=== PATIENT | female | born 1950 | race Caucasian/White ===

== ENCOUNTER 2022-05-04 13:23 | Emergency (ER) | payer BC ==
[2022-05-04] MEDS ORDERED: Sodium Chloride 0.9% 10 ML Syringe FLUSH PRN (14:25)
[2022-05-04] MEDS ORDERED: Magnesium Sulfate/Water 2 GM in Premix Bag 1 BAG IV ONE (14:29)
[2022-05-04] MEDS ORDERED: Lidocaine 1% PF 2 ML SDV IV SCH (14:30)
[2022-05-04] MEDS ORDERED: Potassium Chloride 20 MEQ Tab.ER PO ONE (14:33)
[2022-05-04] MEDS ORDERED: Aspirin 81 MG Tab.Chew PO ONE (14:58)
[2022-05-04] MEDS ORDERED: Sodium Chloride 0.9% 1,000 ML IV SCH (15:00)
[2022-05-04] MEDS ORDERED: Potassium Chloride 20 MEQ in Premix Bag 1 BAG IV SCH (15:00)
[2022-05-04] MEDS: Potassium Chloride 20 MEQ, Lidocaine 1% 2 ML in Sodium Chloride 0.9% 100 ML IV SCH ×2 (15:44→17:42)
[2022-05-04] MEDS ORDERED: Clopidogrel 75 MG Tab PO ONE (16:58)
[2022-05-04] MEDS ORDERED: Heparin Sodium 5,000 Units/ML Vial IVPUSH ONE (18:51)
[2022-05-04] MEDS ORDERED: Heparin Sodium/D5W 25,000 UNITS/500 ML BAG IV SCH (19:00)
== END 2022-05-04 21:19 ==
LOC: JP.ED 13:23
DX: I21.9 Acute myocardial infarction, unspecified (principal); E87.6 Hypokalemia; R82.71 Bacteriuria; R79.89 Other specified abnormal findings of blood chemistry; I10 Essential (primary) hypertension; Z88.1 Allergy status to other antibiotic agents
CPT/HCPCS: 36415; 81001; 83880; 84132; 84484; 85610; 85730; 87086; 93005; 93010; 96365; 96366; 96367; 96368; 99285; A9270; J1644; J2001; J3475; J3480; J3490; J7030